=== PATIENT | female | born 1930 | race Caucasian/White ===

== ENCOUNTER 2018-08-07 16:48 | Inpatient (IN) | payer OTHER ==
[~2018-08-07] VITALS: Ht 165.1 cm; Wt 55.8 kg
[2018-08-07] MEDS ORDERED: SODIUM CHLORIDE 0.9% 1,000 ML IV ONE (18:00)
[2018-08-07] MEDS ORDERED: ASPIRIN 325MG EC TABLET PO ONE (18:15)
[2018-08-07 18:41] LABS: CHLORIDE 106 mEq/L (98-107)
[2018-08-07 18:57] LABS: BASOPHILS % 0.5 % (0.0-2.0); EOSINOPHILS % 0.1 % (0.0-5.0); HEMATOCRIT. 24.5 % (36.0-48.0); HEMOGLOBIN. 7.7 g/dL (12.0-16.0); LYMPHOCYTES % 28.9 % (20.0-50.0); MEAN CORPUSCULAR HEMOGLOBIN 18.8 pg (28.0-32.0); MEAN CORPUSCULAR VOLUME 59.9 fL (81.0-99.0); MEAN PLATELET VOLUME 9.7 fl (7.4-10.4); MONOCYTES % 6.2 % (2.0-8.0); NEUTROPHILS % 64.3 % (40.0-76.0); PLATELET 223 x1000/uL (130-400); RED BLOOD CELL COUNT 4.08 mill/uL (4.2-5.4); RED CELL DISTRIBUTION WIDTH 18.4 % (11.6-14.6)
[2018-08-07 18:59] LABS: PROTHROMBIN TIME 10.3 sec (9.1-11.1)
[2018-08-07] MEDS ORDERED: MORPHINE SULFATE 2 MG/ML CPJ (NOT FOR IM USE) IV ONE (19:15)
[2018-08-07 19:32] LABS: PLATELET ESTIMATE NORMAL
[2018-08-07] MEDS ORDERED: MORPHINE SULFATE 4 MG/ML CPJ (NOT FOR IM USE) IV NR (20:00)
[2018-08-07 23:05] VITALS: BP 152/91
[2018-08-07] MEDS ORDERED: PANT40TA4 PO (23:47)
[2018-08-07] MEDS ORDERED: LEVO88TA2 PO (23:47)
[2018-08-07] MEDS ORDERED: ALT10 PO (23:47)
[2018-08-07] MEDS ORDERED: WARF2.5T47 PO (23:49)
[2018-08-07] MEDS ORDERED: AMLO2.5T2 PO (23:54)
[2018-08-08] VITALS (8 sets, daily range): BP systolic 96–152; BP diastolic 41–91
[2018-08-08] MEDS ORDERED: ONDANSETRON HCL 4MG/2ML INJ IV PRN ×2 (01:00→12:45)
[2018-08-08] MEDS ORDERED: HYDROMORPHONE HCL/PF 2MG/ML CPJ IV PRN ×2 (01:00→14:15)
[2018-08-08] MEDS ORDERED: MAGNESIUM HYDROXIDE 400MG/5ML 30ML UDC PO PRN (01:00)
[2018-08-08] MEDS ORDERED: HYDROCODONE/ACETAMINOPHEN 10/325MG TABLET PO PRN (01:00)
[2018-08-08] MEDS: SODIUM CHLORIDE 0.9% INJ 3ML FLUSH IVF SCH ×2 (06:31→14:00)
[2018-08-08] MEDS: LEVOTHYROXINE SODIUM 88MCG TABLET PO SCH (06:31)
[2018-08-08] MEDS: FAMOTIDINE 20MG TABLET PO SCH (09:00)
[2018-08-08] MEDS: LISINOPRIL 10MG TABLET PO SCH (09:00)
[2018-08-08] MEDS: DOCUSATE SODIUM 100MG CAPSULE PO SCH ×2 (09:00→17:29)
[2018-08-08] MEDS ORDERED: VANCOMYCIN HCL 500 MG/VIAL ONE (11:27)
[2018-08-08] MEDS ORDERED: BACITRACIN 15GM TUBE TOP ONE (11:27)
[2018-08-08] MEDS ORDERED: HYDROCODONE/ACETAMINOPHEN 5/325MG TABLET PO PRN (12:45)
[2018-08-08] MEDS ORDERED: EPHEDRINE SULFATE 50MG/ML VIAL ONE (12:46)
[2018-08-08] MEDS ORDERED: SODIUM CHLORIDE 0.9% 10ML VIAL ONE (12:46)
[2018-08-08] MEDS ORDERED: PHENYLEPHRINE HCL 10 MG/ML 1ML (IV VIAL) IV ONE (12:48)
[2018-08-08] MEDS ORDERED: ROCURONIUM BROMIDE 10MG/ML VIAL 5ML IV ONE (12:56)
[2018-08-08] MEDS ORDERED: CLINDAMYCIN 600 MG in DEXTROSE 5% WATER 50 ML IV ONE (13:15)
[2018-08-08] MEDS ORDERED: DEXAMETHASONE 4MG/ML 1ML VIAL ONE (13:23)
[2018-08-08] MEDS ORDERED: NEOSTIGMINE METHYLSULFATE 1MG/ML 10 ML VIAL ONE (13:30)
[2018-08-08] MEDS ORDERED: GLYCOPYRROLATE 0.2 MG/ML 2ML VIAL ONE (13:30)
[2018-08-08] MEDS ORDERED: ONDANSETRON HCL 4MG/2ML INJ ONE (13:32)
[2018-08-08 17:50] LABS: INR 1.1; PROTHROMBIN TIME 10.6 sec (9.1-11.1)
[2018-08-08 17:51] LABS: HEMATOCRIT. 24.3 % (36.0-48.0); HEMOGLOBIN. 7.6 g/dL (12.0-16.0); MEAN CORPUSCULAR HEMOGLOBIN 20.4 pg (28.0-32.0); MEAN CORPUSCULAR VOLUME 65.5 fL (81.0-99.0); MEAN PLATELET VOLUME 10.4 fl (7.4-10.4); PLATELET 177 x1000/uL (130-400); RED BLOOD CELL COUNT 3.71 mill/uL (4.2-5.4); RED CELL DISTRIBUTION WIDTH 20.8 % (11.6-14.6)
[2018-08-08 18:04] LABS: TOTAL IRON BINDING CAPACITY 238 ug/dL (250-450)
[2018-08-08 18:27] LABS: PLATELET ESTIMATE NORMAL
[2018-08-09] VITALS (7 sets, daily range): BP systolic 96–128; BP diastolic 45–69
[2018-08-09] MEDS: SODIUM CHLORIDE 0.9% INJ 3ML FLUSH IVF SCH ×4 (00:31→20:13)
[2018-08-09] MEDS: LEVOTHYROXINE SODIUM 88MCG TABLET PO SCH ×2 (06:50→09:19)
[2018-08-09] MEDS: LISINOPRIL 10MG TABLET PO SCH (09:00)
[2018-08-09] MEDS: VANCOMYCIN 1 G PREMIX 200 ML IV SCH (09:19)
[2018-08-09] MEDS: FAMOTIDINE 20MG TABLET PO SCH (09:19)
[2018-08-09] MEDS: DOCUSATE SODIUM 100MG CAPSULE PO SCH ×2 (09:19→17:29)
[2018-08-09] MEDS: HYDROCODONE/ACETAMINOPHEN 10/325MG TABLET PO PRN ×2 (11:32→19:29)
[2018-08-10 00:05] VITALS: BP 104/52
[2018-08-10 04:00] VITALS: BP 106/48
[2018-08-10] MEDS: SODIUM CHLORIDE 0.9% INJ 3ML FLUSH IVF SCH ×3 (05:33→20:24)
[2018-08-10 08:00] VITALS: BP 96/63
[2018-08-10] MEDS: LISINOPRIL 10MG TABLET PO SCH (08:23)
[2018-08-10] MEDS: VANCOMYCIN 1 G PREMIX 200 ML IV SCH (09:00)
[2018-08-10] MEDS: DOCUSATE SODIUM 100MG CAPSULE PO SCH ×2 (10:00→17:11)
[2018-08-10] MEDS: LEVOTHYROXINE SODIUM 88MCG TABLET PO SCH (10:00)
[2018-08-10] MEDS: FAMOTIDINE 20MG TABLET PO SCH (10:00)
[2018-08-10 12:00] VITALS: BP 106/70
[2018-08-10 16:00] VITALS: BP 104/48
[2018-08-10 20:06] VITALS: BP 113/70
[2018-08-10] MEDS: HYDROCODONE/ACETAMINOPHEN 10/325MG TABLET PO PRN (23:01)
[2018-08-11 00:05] VITALS: BP 108/50
[2018-08-11 04:00] VITALS: BP 105/41
[2018-08-11] MEDS: SODIUM CHLORIDE 0.9% INJ 3ML FLUSH IVF SCH ×3 (05:37→21:36)
[2018-08-11 07:13] VITALS: BP 105/41
[2018-08-11 08:00] VITALS: BP 103/49
[2018-08-11] MEDS: DOCUSATE SODIUM 100MG CAPSULE PO SCH ×2 (08:09→17:31)
[2018-08-11] MEDS: FAMOTIDINE 20MG TABLET PO SCH (08:09)
[2018-08-11] MEDS: LISINOPRIL 10MG TABLET PO SCH (08:10)
[2018-08-11] MEDS ORDERED: DIATR MEGLU/DIATRIZOATE SOLN 30ML PO SCH (08:45)
[2018-08-11 12:00] VITALS: BP 106/52
[2018-08-11 20:00] VITALS: BP 112/58
[2018-08-11] MEDS ORDERED: DIPHENHYDRAMINE 50MG/ML VIAL IV PRN (23:00)
[2018-08-12] VITALS (13 sets, daily range): BP systolic 89–116; BP diastolic 40–59
[2018-08-12] MEDS: ACETAMINOPHEN 325MG TABLET PO PRN ×2 (00:12→11:09)
[2018-08-12] MEDS: SODIUM CHLORIDE 0.9% INJ 3ML FLUSH IVF SCH ×3 (05:12→20:26)
[2018-08-12] MEDS: LISINOPRIL 10MG TABLET PO SCH (09:00)
[2018-08-12] MEDS: FAMOTIDINE 20MG TABLET PO SCH (09:18)
[2018-08-12] MEDS: DOCUSATE SODIUM 100MG CAPSULE PO SCH ×2 (09:18→16:51)
[2018-08-12] MEDS: LEVOTHYROXINE SODIUM 88MCG TABLET PO SCH (09:18)
[2018-08-12 10:09] LABS: MEAN CORPUSCULAR HEMOGLOBIN 20.7 pg (28.0-32.0); MEAN CORPUSCULAR VOLUME 64.4 fL (81.0-99.0); MEAN PLATELET VOLUME 9.1 fl (7.4-10.4); PLATELET 258 x1000/uL (130-400); RED BLOOD CELL COUNT 3.19 mill/uL (4.2-5.4)
[2018-08-12 10:22] LABS: HEMATOCRIT. 20.6 % (36.0-48.0); HEMOGLOBIN. 6.6 g/dL (12.0-16.0)
[2018-08-12 10:28] LABS: CHLORIDE 107 mEq/L (98-107)
[2018-08-12 10:35] LABS: PHOSPHORUS 3.8 mg/dL (2.5-4.9)
[2018-08-12] MEDS: TRAMADOL 50MG TABLET PO PRN (15:47)
[2018-08-12] MEDS: HYDROCODONE/ACETAMINOPHEN 10/325MG TABLET PO PRN (16:52)
[2018-08-12 17:41] LABS: BASOPHILS % 0.5 % (0.0-2.0); EOSINOPHILS % 1.9 % (0.0-5.0); LYMPHOCYTES % 30.7 % (20.0-50.0); MEAN CORPUSCULAR HEMOGLOBIN 20.7 pg (28.0-32.0); MEAN CORPUSCULAR VOLUME 64.1 fL (81.0-99.0); MEAN PLATELET VOLUME 8.8 fl (7.4-10.4); MONOCYTES % 5.9 % (2.0-8.0); PLATELET 262 x1000/uL (130-400); RED BLOOD CELL COUNT 2.88 mill/uL (4.2-5.4); RED CELL DISTRIBUTION WIDTH 19.4 % (11.6-14.6)
[2018-08-12 17:48] LABS: HEMATOCRIT. 18.5 % (36.0-48.0)
[2018-08-12 17:49] LABS: INR 1.1; PROTHROMBIN TIME 10.6 sec (9.1-11.1)
[2018-08-12 17:53] LABS: NUCLEATED RED BLOOD CELLS 2 /100 WBC; PLATELET ESTIMATE NORMAL
[2018-08-12 18:05] LABS: PLATELET ESTIMATE NORMAL
[2018-08-13] VITALS (9 sets, daily range): BP systolic 98–139; BP diastolic 42–72
[2018-08-13 01:37] LABS: BASOPHILS % 0.9 % (0.0-2.0); EOSINOPHILS % 2.4 % (0.0-5.0); HEMATOCRIT. 22.6 % (36.0-48.0); HEMOGLOBIN. 7.3 g/dL (12.0-16.0); LYMPHOCYTES % 30.4 % (20.0-50.0); MEAN CORPUSCULAR HEMOGLOBIN 21.9 pg (28.0-32.0); MEAN CORPUSCULAR VOLUME 67.5 fL (81.0-99.0); MEAN PLATELET VOLUME 8.5 fl (7.4-10.4); MONOCYTES % 5.2 % (2.0-8.0); NEUTROPHILS % 61.1 % (40.0-76.0); PLATELET 252 x1000/uL (130-400); RED BLOOD CELL COUNT 3.34 mill/uL (4.2-5.4)
[2018-08-13] MEDS: SODIUM CHLORIDE 0.9% INJ 3ML FLUSH IVF SCH ×2 (06:00→14:00)
[2018-08-13 06:58] LABS: MEAN CORPUSCULAR VOLUME 67.8 fL (81.0-99.0); PLATELET 248 x1000/uL (130-400); RED BLOOD CELL COUNT 3.16 mill/uL (4.2-5.4); RED CELL DISTRIBUTION WIDTH 26.8 % (11.6-14.6)
[2018-08-13] MEDS: FAMOTIDINE 20MG TABLET PO SCH (07:43)
[2018-08-13] MEDS: DOCUSATE SODIUM 100MG CAPSULE PO SCH ×2 (07:43→17:00)
[2018-08-13] MEDS: LEVOTHYROXINE SODIUM 88MCG TABLET PO SCH (07:43)
[2018-08-13 08:14] LABS: HEMATOCRIT 21.4 % (36.0-48.0); HEMOGLOBIN 6.9 g/dL (12.0-16.0)
[2018-08-13] MEDS: HYDROCODONE/ACETAMINOPHEN 10/325MG TABLET PO PRN (08:17)
[2018-08-13] MEDS: LISINOPRIL 10MG TABLET PO SCH (08:18)
[2018-08-13] MEDS: TRAMADOL 50MG TABLET PO PRN (14:54)
[2018-08-13] MEDS: DIPHENHYDRAMINE 12.5MG/5ML UDC PO PRN (20:07)
[2018-08-14] VITALS: BP 152/74
[2018-08-14] MEDS: SODIUM CHLORIDE 0.9% INJ 3ML FLUSH IVF SCH ×5 (00:39→21:57)
[2018-08-14 04:00] VITALS: BP 114/57
[2018-08-14 08:00] VITALS: BP 127/52
[2018-08-14] MEDS: FAMOTIDINE 20MG TABLET PO SCH (09:20)
[2018-08-14] MEDS: DOCUSATE SODIUM 100MG CAPSULE PO SCH ×2 (09:20→16:46)
[2018-08-14] MEDS: LISINOPRIL 10MG TABLET PO SCH (09:20)
[2018-08-14] MEDS: LEVOTHYROXINE SODIUM 88MCG TABLET PO SCH (09:20)
[2018-08-14 12:00] VITALS: BP 111/63
[2018-08-14] MEDS: DIPHENHYDRAMINE 12.5MG/5ML UDC PO PRN (15:45)
[2018-08-14 16:00] VITALS: BP 145/58
[2018-08-14] MEDS: ACETAMINOPHEN 325MG TABLET PO PRN (17:05)
[2018-08-14] MEDS: TRAMADOL 50MG TABLET PO PRN (19:28)
[2018-08-14 20:00] VITALS: BP 124/54
[2018-08-14] MEDS: TEMAZEPAM 15MG CAPSULE PO SCH (20:56)
[2018-08-14 21:30] LABS: CHLORIDE 105 mEq/L (98-107)
[2018-08-15 04:00] VITALS: BP 122/62
[2018-08-15] MEDS: SODIUM CHLORIDE 0.9% INJ 3ML FLUSH IVF SCH ×3 (06:31→21:21)
[2018-08-15 08:00] VITALS: BP 139/54
[2018-08-15] MEDS: LEVOTHYROXINE SODIUM 88MCG TABLET PO SCH (08:04)
[2018-08-15] MEDS: LISINOPRIL 10MG TABLET PO SCH (09:17)
[2018-08-15] MEDS: DOCUSATE SODIUM 100MG CAPSULE PO SCH ×2 (09:17→17:41)
[2018-08-15] MEDS: FAMOTIDINE 20MG TABLET PO SCH (09:17)
[2018-08-15 11:55] LABS: HEMATOCRIT 26.4 % (36.0-48.0); HEMOGLOBIN 8.6 g/dL (12.0-16.0); PLATELET 310 x1000/uL (130-400); RED BLOOD CELL COUNT 3.72 mill/uL (4.2-5.4); RED CELL DISTRIBUTION WIDTH 30.2 % (11.6-14.6)
[2018-08-15 12:00] VITALS: BP 114/56
[2018-08-15] MEDS: TRAMADOL 50MG TABLET PO PRN (12:21)
[2018-08-15 16:00] VITALS: BP 126/59
[2018-08-15] MEDS: ENOXAPARIN 40MG/0.4ML SYR SUBCUT SCH (16:00)
[2018-08-15 20:00] VITALS: BP 153/66
[2018-08-15] MEDS: TEMAZEPAM 15MG CAPSULE PO SCH (21:00)
[2018-08-16] VITALS: BP 161/64
[2018-08-16] MEDS: TRAMADOL 50MG TABLET PO PRN (00:38)
[2018-08-16] MEDS: CLONIDINE 0.1MG TABLET PO PRN (00:39)
[2018-08-16 04:00] VITALS: BP 120/51
[2018-08-16] MEDS: SODIUM CHLORIDE 0.9% INJ 3ML FLUSH IVF SCH ×3 (06:00→21:51)
[2018-08-16 08:00] VITALS: BP 115/65
[2018-08-16] MEDS: LISINOPRIL 10MG TABLET PO SCH (09:09)
[2018-08-16] MEDS: FAMOTIDINE 20MG TABLET PO SCH (09:09)
[2018-08-16] MEDS: DOCUSATE SODIUM 100MG CAPSULE PO SCH ×2 (09:09→17:00)
[2018-08-16] MEDS: LEVOTHYROXINE SODIUM 88MCG TABLET PO SCH (09:10)
[2018-08-16 12:00] VITALS: BP 133/54
[2018-08-16 16:00] VITALS: BP 140/64
[2018-08-16] MEDS: ENOXAPARIN 40MG/0.4ML SYR SUBCUT SCH (17:35)
[2018-08-16 20:00] VITALS: BP 149/66
[2018-08-16] MEDS ORDERED: TEMAZEPAM 15MG CAPSULE PO PRN (21:00)
[2018-08-17] VITALS: BP 156/69
[2018-08-17] MEDS: SODIUM CHLORIDE 0.9% INJ 3ML FLUSH IVF SCH ×3 (03:54→20:10)
[2018-08-17 04:00] VITALS: BP 150/73
[2018-08-17 08:00] VITALS: BP 136/85
[2018-08-17] MEDS: LEVOTHYROXINE SODIUM 88MCG TABLET PO SCH (08:04)
[2018-08-17] MEDS: FAMOTIDINE 20MG TABLET PO SCH (09:13)
[2018-08-17] MEDS: LISINOPRIL 10MG TABLET PO SCH (09:13)
[2018-08-17] MEDS: DOCUSATE SODIUM 100MG CAPSULE PO SCH (09:13)
[2018-08-17 12:00] VITALS: BP 130/55
[2018-08-17 16:00] VITALS: BP 134/67
[2018-08-17] MEDS: ENOXAPARIN 40MG/0.4ML SYR SUBCUT SCH (17:05)
[2018-08-17] MEDS: ACETAMINOPHEN 325MG TABLET PO PRN (18:39)
[2018-08-17 20:00] VITALS: BP 146/53
[2018-08-18 00:07] VITALS: BP 124/46
[2018-08-18 04:00] VITALS: BP 130/56
[2018-08-18] MEDS: SODIUM CHLORIDE 0.9% INJ 3ML FLUSH IVF SCH ×3 (04:35→22:00)
[2018-08-18 08:00] VITALS: BP 116/54
[2018-08-18] MEDS: LEVOTHYROXINE SODIUM 88MCG TABLET PO SCH (08:56)
[2018-08-18] MEDS: FAMOTIDINE 20MG TABLET PO SCH (08:56)
[2018-08-18] MEDS: LISINOPRIL 10MG TABLET PO SCH (08:56)
[2018-08-18] MEDS: IPRATROPIUM/ALBUTEROL 0.5-3(2.5)MG/3ML NEB INH PRN (09:06)
[2018-08-18 12:00] VITALS: BP 118/43
[2018-08-18 16:00] VITALS: BP 123/57
[2018-08-18] MEDS: ENOXAPARIN 40MG/0.4ML SYR SUBCUT SCH (16:41)
[2018-08-18] MEDS: ACETAMINOPHEN 325MG TABLET PO PRN (16:41)
[2018-08-18 20:00] VITALS: BP 158/71
[2018-08-19] VITALS: BP 147/65
[2018-08-19 04:00] VITALS: BP 121/67
[2018-08-19] MEDS: SODIUM CHLORIDE 0.9% INJ 3ML FLUSH IVF SCH ×3 (06:00→21:21)
[2018-08-19 08:00] VITALS: BP 137/59
[2018-08-19] MEDS: FAMOTIDINE 20MG TABLET PO SCH (08:39)
[2018-08-19] MEDS: LEVOTHYROXINE SODIUM 88MCG TABLET PO SCH (08:39)
[2018-08-19] MEDS: LISINOPRIL 10MG TABLET PO SCH (08:41)
[2018-08-19 12:00] VITALS: BP 139/55
[2018-08-19 16:00] VITALS: BP 124/58
[2018-08-19] MEDS: ENOXAPARIN 40MG/0.4ML SYR SUBCUT SCH (16:45)
[2018-08-19] MEDS: ACETAMINOPHEN 325MG TABLET PO PRN (18:53)
[2018-08-19 20:00] VITALS: BP 115/50
[2018-08-20] VITALS: BP 110/81
[2018-08-20 04:00] VITALS: BP 124/50
[2018-08-20] MEDS: SODIUM CHLORIDE 0.9% INJ 3ML FLUSH IVF SCH ×3 (05:39→22:02)
[2018-08-20 07:08] LABS: HEMATOCRIT. 29.8 % (36.0-48.0); HEMOGLOBIN. 9.6 g/dL (12.0-16.0); MEAN CORPUSCULAR HEMOGLOBIN 22.8 pg (28.0-32.0); MEAN CORPUSCULAR VOLUME 71.1 fL (81.0-99.0); MEAN PLATELET VOLUME 8.8 fl (7.4-10.4); PLATELET 376 x1000/uL (130-400); RED BLOOD CELL COUNT 4.19 mill/uL (4.2-5.4); RED CELL DISTRIBUTION WIDTH 29.3 % (11.6-14.6)
[2018-08-20 07:09] LABS: CHLORIDE 105 mEq/L (98-107)
[2018-08-20 08:00] VITALS: BP 119/49
[2018-08-20] MEDS: LISINOPRIL 10MG TABLET PO SCH (08:30)
[2018-08-20] MEDS: FAMOTIDINE 20MG TABLET PO SCH (08:31)
[2018-08-20] MEDS: LEVOTHYROXINE SODIUM 88MCG TABLET PO SCH (08:31)
[2018-08-20] MEDS: ACETAMINOPHEN 325MG TABLET PO PRN ×2 (08:56→19:58)
[2018-08-20 10:09] LABS: PLATELET ESTIMATE NORMAL
[2018-08-20] MEDS ORDERED: LEVOFLOXACIN 500MG PREMIX 100 ML IV SCH ×2 (10:45→12:00)
[2018-08-20 11:47] LABS: CLARITY URINE TURBID (CLEAR); COLOR URINE AMBER (YELLOW); KETONES URINE 1+ (NEGATIVE); LEUKOCYTE ESTERASE URINE 3+ (NEGATIVE); NITRITE URINE POSITIVE (NEGATIVE); OCCULT BLOOD URINE 3+ (NEGATIVE); PROTEIN URINE 2+ (NEGATIVE); SPECIFIC GRAVITY URINE 1.019 (1.005-1.030)
[2018-08-20 12:00] VITALS: BP 98/41
[2018-08-20 12:33] LABS: HEMATOCRIT. 29.5 % (36.0-48.0); HEMOGLOBIN. 9.2 g/dL (12.0-16.0); MEAN CORPUSCULAR HEMOGLOBIN 22.3 pg (28.0-32.0); MEAN CORPUSCULAR VOLUME 71.3 fL (81.0-99.0); MEAN PLATELET VOLUME 8.3 fl (7.4-10.4); PLATELET 368 x1000/uL (130-400); RED BLOOD CELL COUNT 4.13 mill/uL (4.2-5.4); RED CELL DISTRIBUTION WIDTH 29.5 % (11.6-14.6)
[2018-08-20 12:37] LABS: CHLORIDE 106 mEq/L (98-107)
[2018-08-20 12:53] LABS: PLATELET ESTIMATE NORMAL
[2018-08-20] MEDS ORDERED: DEXT 5%/0.45% NACL 1000ML 1,000 ML IV SCH (15:45)
[2018-08-20 16:00] VITALS: BP 121/68
[2018-08-20] MEDS: ENOXAPARIN 40MG/0.4ML SYR SUBCUT SCH (16:00)
[2018-08-20 20:00] VITALS: BP 93/63
[2018-08-20] MEDS: IPRATROPIUM/ALBUTEROL 0.5-3(2.5)MG/3ML NEB HHN SCH (20:50)
[2018-08-20] MEDS: AZTREONAM 1 G in DEXTROSE 5% WATER 50 ML IV SCH (22:02)
[2018-08-21 00:42] VITALS: BP 113/62
[2018-08-21] MEDS: IPRATROPIUM/ALBUTEROL 0.5-3(2.5)MG/3ML NEB HHN SCH ×2 (01:53→09:35)
[2018-08-21 04:00] VITALS: BP 126/75
[2018-08-21] MEDS: SODIUM CHLORIDE 0.9% INJ 3ML FLUSH IVF SCH ×3 (06:32→21:39)
[2018-08-21] MEDS: AZTREONAM 1 G in DEXTROSE 5% WATER 50 ML IV SCH ×3 (06:32→21:39)
[2018-08-21 08:00] VITALS: BP 137/76
[2018-08-21] MEDS: LEVOTHYROXINE SODIUM 88MCG TABLET PO SCH (08:25)
[2018-08-21] MEDS: FAMOTIDINE 20MG TABLET PO SCH (08:25)
[2018-08-21] MEDS: LISINOPRIL 10MG TABLET PO SCH (08:39)
[2018-08-21] MEDS ORDERED: LEVOFLOXACIN 250MG PREMIX 50 ML IV SCH (11:00)
[2018-08-21 12:00] VITALS: BP 123/65
[2018-08-21 13:05] LABS: HEMATOCRIT. 27.1 % (36.0-48.0); HEMOGLOBIN. 8.8 g/dL (12.0-16.0); MEAN CORPUSCULAR HEMOGLOBIN 22.8 pg (28.0-32.0); MEAN CORPUSCULAR VOLUME 70.6 fL (81.0-99.0); MEAN PLATELET VOLUME 8.5 fl (7.4-10.4); PLATELET 339 x1000/uL (130-400); RED BLOOD CELL COUNT 3.84 mill/uL (4.2-5.4); RED CELL DISTRIBUTION WIDTH 29.3 % (11.6-14.6)
[2018-08-21 13:14] LABS: CHLORIDE 104 mEq/L (98-107)
[2018-08-21 13:22] LABS: CREATINE KINASE 38 IU/L (26-192)
[2018-08-21 14:16] LABS: PLATELET ESTIMATE NORMAL
[2018-08-21 16:00] VITALS: BP 135/76
[2018-08-21] MEDS: ENOXAPARIN 40MG/0.4ML SYR SUBCUT SCH (16:25)
[2018-08-21] MEDS ORDERED: CEPHALEXIN 250MG CAPSULE PO ONE (16:30)
[2018-08-21 20:00] VITALS: BP 155/62
[2018-08-22] VITALS: BP 149/65
[2018-08-22] MEDS ORDERED: IPRATROPIUM/ALBUTEROL 0.5-3(2.5)MG/3ML NEB HHN SCH
[2018-08-22 04:00] VITALS: BP 136/73
[2018-08-22] MEDS: AZTREONAM 1 G in DEXTROSE 5% WATER 50 ML IV SCH ×2 (05:29→14:19)
[2018-08-22] MEDS: SODIUM CHLORIDE 0.9% INJ 3ML FLUSH IVF SCH ×3 (05:29→20:27)
[2018-08-22 08:00] VITALS: BP 150/64
[2018-08-22] MEDS: LISINOPRIL 10MG TABLET PO SCH (08:39)
[2018-08-22] MEDS: LEVOTHYROXINE SODIUM 88MCG TABLET PO SCH (08:39)
[2018-08-22] MEDS: FAMOTIDINE 20MG TABLET PO SCH (08:39)
[2018-08-22 12:00] VITALS: BP 146/69
[2018-08-22] MEDS: IPRATROPIUM/ALBUTEROL 0.5-3(2.5)MG/3ML NEB INH PRN (13:39)
[2018-08-22] MEDS ORDERED: METHYLPREDNISOLONE SOD SUCC 125 MG/2 ML VIAL IV NR (15:00)
[2018-08-22] MEDS: ENOXAPARIN 40MG/0.4ML SYR SUBCUT SCH (15:56)
[2018-08-22] MEDS: ACETAMINOPHEN 325MG TABLET PO PRN (18:08)
[2018-08-22 20:00] VITALS: BP 151/76
[2018-08-22] MEDS: SULFAMETHOXAZOLE/TRIMETHOPRIM 800/160MG TABLET PO SCH (20:26)
[2018-08-22] MEDS: METHYLPREDNISOLONE SOD SUCC 125 MG/2 ML VIAL IV SCH (20:26)
[2018-08-23] VITALS: BP 130/68
[2018-08-23 04:00] VITALS: BP 136/78
[2018-08-23] MEDS: METHYLPREDNISOLONE SOD SUCC 125 MG/2 ML VIAL IV SCH (05:08)
[2018-08-23] MEDS: SODIUM CHLORIDE 0.9% INJ 3ML FLUSH IVF SCH ×3 (05:09→22:14)
[2018-08-23] MEDS: IPRATROPIUM/ALBUTEROL 0.5-3(2.5)MG/3ML NEB INH PRN (05:16)
[2018-08-23 08:00] VITALS: BP 103/61
[2018-08-23] MEDS: LEVOTHYROXINE SODIUM 88MCG TABLET PO SCH (08:15)
[2018-08-23] MEDS: LISINOPRIL 10MG TABLET PO SCH (09:00)
[2018-08-23] MEDS: SULFAMETHOXAZOLE/TRIMETHOPRIM 800/160MG TABLET PO SCH ×2 (09:37→20:25)
[2018-08-23] MEDS: FAMOTIDINE 20MG TABLET PO SCH (09:37)
[2018-08-23 12:00] VITALS: BP 110/46
[2018-08-23] MEDS: METHYLPREDNISOLONE SOD SUCC 40 MG/ML VIAL IV SCH ×2 (14:11→22:13)
[2018-08-23 16:00] VITALS: BP 152/64
[2018-08-23] MEDS: ENOXAPARIN 40MG/0.4ML SYR SUBCUT SCH (18:01)
[2018-08-23 20:00] VITALS: BP 123/66
[2018-08-24] VITALS: BP 152/78
[2018-08-24] MEDS: IPRATROPIUM BROMIDE (0.02%) 0.5MG/2.5ML NEB HHN SCH ×2 (01:00→16:32)
[2018-08-24 04:00] VITALS: BP 137/58
[2018-08-24] MEDS: METHYLPREDNISOLONE SOD SUCC 40 MG/ML VIAL IV SCH ×2 (06:18→13:02)
[2018-08-24] MEDS: SODIUM CHLORIDE 0.9% INJ 3ML FLUSH IVF SCH ×3 (06:21→21:07)
[2018-08-24 06:55] LABS: HEMATOCRIT. 26.9 % (36.0-48.0); HEMOGLOBIN. 8.6 g/dL (12.0-16.0); MEAN CORPUSCULAR HEMOGLOBIN 22.4 pg (28.0-32.0); MEAN CORPUSCULAR VOLUME 70.4 fL (81.0-99.0); MEAN PLATELET VOLUME 8.9 fl (7.4-10.4); PLATELET 376 x1000/uL (130-400); RED BLOOD CELL COUNT 3.81 mill/uL (4.2-5.4); RED CELL DISTRIBUTION WIDTH 29.4 % (11.6-14.6)
[2018-08-24 06:59] LABS: CHLORIDE 108 mEq/L (98-107)
[2018-08-24] MEDS: FAMOTIDINE 20MG TABLET PO SCH (07:44)
[2018-08-24] MEDS: SULFAMETHOXAZOLE/TRIMETHOPRIM 800/160MG TABLET PO SCH ×2 (07:44→21:07)
[2018-08-24] MEDS: LEVOTHYROXINE SODIUM 88MCG TABLET PO SCH (07:44)
[2018-08-24] MEDS: IPRATROPIUM/ALBUTEROL 0.5-3(2.5)MG/3ML NEB INH PRN (07:45)
[2018-08-24] MEDS: LISINOPRIL 10MG TABLET PO SCH (07:46)
[2018-08-24 08:00] VITALS: BP 128/56
[2018-08-24 12:00] VITALS: BP 127/47
[2018-08-24] MEDS ORDERED: IPRATROPIUM BROMIDE (0.02%) 0.5MG/2.5ML NEB HHN PRN (14:00)
[2018-08-24 14:08] LABS: PLATELET ESTIMATE NORMAL
[2018-08-24 16:00] VITALS: BP 127/74
[2018-08-24] MEDS: ENOXAPARIN 40MG/0.4ML SYR SUBCUT SCH (16:09)
[2018-08-24 20:00] VITALS: BP_SYST 160; BP_SYST 166; BP_DIAS 100; BP_DIAS 75
[2018-08-25] VITALS: BP 140/64
[2018-08-25] MEDS: IPRATROPIUM BROMIDE (0.02%) 0.5MG/2.5ML NEB HHN SCH ×3 (01:00→16:34)
[2018-08-25 04:00] VITALS: BP 159/91
[2018-08-25] MEDS: SODIUM CHLORIDE 0.9% INJ 3ML FLUSH IVF SCH ×3 (06:00→20:04)
[2018-08-25 08:00] VITALS: BP 145/88
[2018-08-25] MEDS: SULFAMETHOXAZOLE/TRIMETHOPRIM 800/160MG TABLET PO SCH ×2 (08:13→20:03)
[2018-08-25] MEDS: FAMOTIDINE 20MG TABLET PO SCH (08:13)
[2018-08-25] MEDS: LEVOTHYROXINE SODIUM 88MCG TABLET PO SCH (08:13)
[2018-08-25] MEDS: PREDNISONE 20MG TABLET PO SCH (08:17)
[2018-08-25] MEDS: LISINOPRIL 10MG TABLET PO SCH (09:00)
[2018-08-25 12:00] VITALS: BP 142/71
[2018-08-25 16:00] VITALS: BP 112/62
[2018-08-25] MEDS ORDERED: BISACODYL 10MG SUPP PR PRN (17:15)
[2018-08-25] MEDS: ENOXAPARIN 40MG/0.4ML SYR SUBCUT SCH (17:56)
[2018-08-25 19:54] VITALS: BP 165/96
[2018-08-25] MEDS: CLONIDINE 0.1MG TABLET PO PRN (20:03)
[2018-08-26] VITALS: BP 118/52
[2018-08-26] MEDS: IPRATROPIUM BROMIDE (0.02%) 0.5MG/2.5ML NEB HHN SCH (01:04)
[2018-08-26 04:00] VITALS: BP 122/66
[2018-08-26] MEDS: SODIUM CHLORIDE 0.9% INJ 3ML FLUSH IVF SCH ×3 (05:43→21:08)
[2018-08-26] MEDS: LISINOPRIL 10MG TABLET PO SCH (07:19)
[2018-08-26 08:00] VITALS: BP 135/58
[2018-08-26] MEDS: PREDNISONE 20MG TABLET PO SCH (08:08)
[2018-08-26] MEDS: SULFAMETHOXAZOLE/TRIMETHOPRIM 800/160MG TABLET PO SCH ×2 (08:08→21:08)
[2018-08-26] MEDS: FAMOTIDINE 20MG TABLET PO SCH (08:08)
[2018-08-26] MEDS: LEVOTHYROXINE SODIUM 88MCG TABLET PO SCH (08:10)
[2018-08-26 12:00] VITALS: BP 142/79
[2018-08-26 16:00] VITALS: BP 132/53
[2018-08-26] MEDS: ENOXAPARIN 40MG/0.4ML SYR SUBCUT SCH (16:38)
[2018-08-26 20:00] VITALS: BP 168/82
[2018-08-27] VITALS: BP 162/50
[2018-08-27] MEDS: CLONIDINE 0.1MG TABLET PO PRN (00:06)
[2018-08-27] MEDS: SODIUM CHLORIDE 0.9% INJ 3ML FLUSH IVF SCH ×2 (03:59→21:34)
[2018-08-27 04:00] VITALS: BP 126/62
[2018-08-27 07:24] LABS: HEMATOCRIT. 29.8 % (36.0-48.0); HEMOGLOBIN. 9.6 g/dL (12.0-16.0); MEAN CORPUSCULAR HEMOGLOBIN 22.5 pg (28.0-32.0); MEAN CORPUSCULAR VOLUME 70.2 fL (81.0-99.0); MEAN PLATELET VOLUME 9.3 fl (7.4-10.4); PLATELET 392 x1000/uL (130-400); RED BLOOD CELL COUNT 4.25 mill/uL (4.2-5.4)
[2018-08-27 07:28] LABS: CHLORIDE 107 mEq/L (98-107)
[2018-08-27 07:45] LABS: PHOSPHORUS 3.1 mg/dL (2.5-4.9)
[2018-08-27] MEDS: PREDNISONE 10MG TABLET PO SCH (08:20)
[2018-08-27] MEDS: LEVOTHYROXINE SODIUM 88MCG TABLET PO SCH (08:20)
[2018-08-27] MEDS: LISINOPRIL 10MG TABLET PO SCH (08:30)
[2018-08-27] MEDS: FAMOTIDINE 20MG TABLET PO SCH (08:30)
[2018-08-27 10:47] LABS: PLATELET ESTIMATE NORMAL
[2018-08-27 12:00] VITALS: BP 113/80
[2018-08-27 16:00] VITALS: BP 113/80
[2018-08-27] MEDS: ENOXAPARIN 40MG/0.4ML SYR SUBCUT SCH ×2 (16:00→21:34)
[2018-08-27 20:00] VITALS: BP 125/54
[2018-08-28] VITALS: BP 116/54
[2018-08-28 04:00] VITALS: BP 112/52
[2018-08-28] MEDS: SODIUM CHLORIDE 0.9% INJ 3ML FLUSH IVF SCH ×3 (06:41→21:53)
[2018-08-28 08:00] VITALS: BP 130/42
[2018-08-28] MEDS: PREDNISONE 10MG TABLET PO SCH (08:51)
[2018-08-28] MEDS: LEVOTHYROXINE SODIUM 88MCG TABLET PO SCH (08:51)
[2018-08-28] MEDS: FAMOTIDINE 20MG TABLET PO SCH (08:52)
[2018-08-28] MEDS: LISINOPRIL 10MG TABLET PO SCH (08:52)
[2018-08-28 12:00] VITALS: BP 93/72
[2018-08-28 16:00] VITALS: BP 140/66
[2018-08-28] MEDS: ENOXAPARIN 40MG/0.4ML SYR SUBCUT SCH (17:25)
[2018-08-28 20:00] VITALS: BP 110/65
[2018-08-29] VITALS: BP 136/69
[2018-08-29 04:00] VITALS: BP 127/65
[2018-08-29] MEDS: SODIUM CHLORIDE 0.9% INJ 3ML FLUSH IVF SCH ×3 (06:26→23:12)
[2018-08-29 08:00] VITALS: BP 118/52
[2018-08-29] MEDS: LISINOPRIL 10MG TABLET PO SCH ×2 (09:00→09:43)
[2018-08-29] MEDS ORDERED: PREDNISONE 10MG TABLET PO SCH (09:00)
[2018-08-29] MEDS: FAMOTIDINE 20MG TABLET PO SCH (09:42)
[2018-08-29] MEDS: LEVOTHYROXINE SODIUM 88MCG TABLET PO SCH (09:42)
[2018-08-29 12:00] VITALS: BP 99/54
[2018-08-29 16:00] VITALS: BP 120/64
[2018-08-29] MEDS: ENOXAPARIN 40MG/0.4ML SYR SUBCUT SCH (19:20)
[2018-08-29 20:00] VITALS: BP 123/66
[2018-08-30] VITALS: BP 118/65
[2018-08-30 04:00] VITALS: BP 120/65
[2018-08-30] MEDS: SODIUM CHLORIDE 0.9% INJ 3ML FLUSH IVF SCH ×3 (06:28→22:22)
[2018-08-30 08:55] VITALS: BP 127/76
[2018-08-30] MEDS: LEVOTHYROXINE SODIUM 88MCG TABLET PO SCH ×2 (09:00→11:01)
[2018-08-30] MEDS: LISINOPRIL 10MG TABLET PO SCH ×2 (09:50→10:54)
[2018-08-30] MEDS: FAMOTIDINE 20MG TABLET PO SCH ×2 (09:52→10:54)
[2018-08-30] MEDS: ENOXAPARIN 40MG/0.4ML SYR SUBCUT SCH (16:00)
[2018-08-30 20:00] VITALS: BP 123/40
[2018-08-31] MEDS: SODIUM CHLORIDE 0.9% INJ 3ML FLUSH IVF SCH ×3 (06:45→22:00)
[2018-08-31 08:00] VITALS: BP 114/57
[2018-08-31] MEDS: LISINOPRIL 10MG TABLET PO SCH ×4 (08:52→08:56)
[2018-08-31] MEDS: FAMOTIDINE 20MG TABLET PO SCH (08:58)
[2018-08-31 12:00] VITALS: BP 94/55
[2018-08-31] MEDS: ACETAMINOPHEN 325MG TABLET PO PRN (14:39)
[2018-08-31 16:00] VITALS: BP 99/55
[2018-08-31] MEDS: ENOXAPARIN 40MG/0.4ML SYR SUBCUT SCH (16:33)
[2018-09-01 04:00] VITALS: BP 179/82
[2018-09-01 07:57] VITALS: BP 120/69
[2018-09-01 08:00] VITALS: BP 120/69
[2018-09-01] MEDS: LISINOPRIL 10MG TABLET PO SCH (08:13)
[2018-09-01] MEDS: LEVOTHYROXINE SODIUM 88MCG TABLET PO SCH (08:13)
[2018-09-01] MEDS: FAMOTIDINE 20MG TABLET PO SCH (08:13)
[2018-09-01] MEDS: ACETAMINOPHEN 325MG TABLET PO PRN (08:48)
== END 2018-09-01 09:17 | disposition home or self-care (01) | DRG 481 ==
LOC: ER 16:48 → EDBD 19:51 → 7WST 19:51 → EDBEDREQ 19:53 → ENRESERV 22:04
PROVIDERS: ADMIT Internal Medicine; ATTEND Internal Medicine
PROC: 0QS706Z Reposition Left Upper Femur with Intramedullary Internal Fixation Device, Open Approach (ICD-10-PCS; principal; 2018-08-08)
PROC: 30233N1 Transfusion of Nonautologous Red Blood Cells into Peripheral Vein, Percutaneous Approach (ICD-10-PCS; 2018-08-08)
DX: S72.22XA Displaced subtrochanteric fracture of left femur, initial encounter for closed fracture (principal); N39.0 Urinary tract infection, site not specified; B96.20 Unspecified Escherichia coli [E. coli] as the cause of diseases classified elsewhere; J20.9 Acute bronchitis, unspecified; E03.9 Hypothyroidism, unspecified; I10 Essential (primary) hypertension; I48.0 Paroxysmal atrial fibrillation; J45.909 Unspecified asthma, uncomplicated; W01.0XXA Fall on same level from slipping, tripping and stumbling without subsequent striking against object, initial encounter; R26.9 Unspecified abnormalities of gait and mobility; D64.9 Anemia, unspecified; Z79.01 Long term (current) use of anticoagulants; Z82.49 Family history of ischemic heart disease and other diseases of the circulatory system; Z86.73 Personal history of transient ischemic attack (TIA), and cerebral infarction without residual deficits; Y93.89 Activity, other specified; Y92.89 Other specified places as the place of occurrence of the external cause; Y99.8 Other external cause status; Z88.0 Allergy status to penicillin; Z79.899 Other long term (current) drug therapy
CPT/HCPCS: 36415; 71045; 73502; 73551; 73552; 76000; 80048; 82140; 82550; 83540; 83550; 83735; 84100; 84443; 85027; 85384; 86850; 86900; 86920; 87077; 87186; 93005; 93970; 93971; 94640; 96361; 96374; 97110; 97116; 97162; 97166; 97530; 97535; 99285; A6261; C1713; C1893; J1100; J1170; J1200; J1650; J1956; J2270; J2370; J2405; J2710; J2920; J2930; J3370; J3490; J7030; J7040; J7050; J7060; J7512; J7620; P9016; Q0163; A4315